=== PATIENT | male | born 2000 | race Caucasian/White ===

== ENCOUNTER 2019-12-17 12:30 | Emergency (ER) | payer OTHER, SELFPAY ==
[2019-12-17 12:32] VITALS: BP 108/65; PULSE 82; RESP 15; TEMP 36.4; O2SAT 97; BMI 21.9
--- NOTE | 2019-12-17 13:02 | ED.DCSUM_ITS ---
History of Present Illness Chief Complaint: Fever Informant: Patient Known exposure: No Onset: Today Context: Gradual Onset Associated Symptoms: Chills, Cough, Fever, White sputum. Negative for: Ear pain, Sore throat Chest Pain: None Narrative: Patient is a 19-year-old male that denies any past medical history except for mild intermittent asthma presenting at the request of [facility]. Patient states since yesterday he has had fever, myalgias, headache, cough and nasal congestion. He denies associated sore throat or difficulty breathing. He denies any significant wheezing. He was put in quarantine for the campus policy and was supposed to be tested for coronavirus there however today he spiked a fever of 101.5. He took a gram of Tylenol about 2 hours prior to arrival which has alleviated his fever and some of his myalgias. They wanted him to be evaluated further at the emergency room which is why he is here. Patient denies any nausea, vomiting or change in bowel habits. He notes his roommate has also had a fever but denies any other sick contacts. He states his symptoms started at 6 PM yesterday. He has no other complaints at this time. Past Medical History - Allergies and Home Meds Allergies/Adverse Reactions: Allergies No Known Allergies Allergy (Verified 12/17/19 12:34) Past Medical History: - - Mild asthma Surgical History: noncontributory Lives: Roommate Review of Systems General: Reports: Chills, Fever, Malaise. Denies: Sweats Cardiovascular: Denies: Chest pain, Palpitations Respiratory: Reports: Cough. Denies: Dyspnea, Dyspnea on exertion Gastrointestinal: Denies: Abdominal pain, Nausea, Vomiting, Diarrhea, Melena, Hematochezia Genitourinary: Denies: Dysuria, Hematuria, Frequency Musculoskeletal: Reports: Myalgias Skin: Denies: Rash Neurological: Reports: Headache. Denies: Weakness, Numbness Physical Exam Vital Signs/Narrative: Vital Signs Temp Pulse Resp BP Pulse Ox 12/17/19 12:32 97.5 F L 82 15 108/65 97 Inital Vital Signs reviewed: Yes General: Well nourished, Well developed Head: Normocephalic, Atraumatic Eyes: Perrl, EOMI ENT: Moist mucous membranes, - - Bilateral cerumen impactions Neck: Supple, Nontender Cardiovascular: Regular rate, Regular rhythm, No murmurs Respiratory: No distress, CTA bilaterally. Negative for: Wheezing, Diminished Abdomen: Soft, Nontender, Nondistended, Normal bowel sounds Back: Nontender, Normal Inspection Extremities: Nontender, No edema Skin: Normal color, No rash Neurological: Alert, Oriented x3, Cranial nerves II-XII grossly intact, Normal Strength, Normal Sensation Psychological: Normal affect Diagnostic/Tx/Re-eval - Medical Decision Making Evaluated for less than 24 hours of febrile illness. He appears nontoxic in no acute distress. He took Tylenol prior to arrival is currently afebrile. I suspect he has some type of viral illness. Given the current pandemic, he will be tested for COVID. He has clear breath sounds and I do not think a chest x- ray is indicated at this time. Patient denies any other complaints at this time. He will be treated symptomatically at home with Motrin and Tylenol alternating. He is offered Motrin in the ER but declines. At this time I do not suspect bacterial meningitis. He does not have any nuchal rigidity or associated rash. He has a normal neurologic exam. I think his headache and myalgias is more associated with his viral illness. ED Disposition - Plan for ED Patient: Disposition: Home or Assisted Living Diagnosis: Viral respiratory illness, Suspected COVID-19 virus infection Instructions: ED Viral Syndrome Additional Instructions: Please follow-up with [facility]. Alternate 600 mg of ibuprofen with 500 mg of Tylenol every 4 hours for fever and myalgias/body aches. You can use [id number] Debrox for your ear wax. Return the emergency room he developed difficulty breathing or feel that you are getting dehydrated. Try to drink lots of fluids over the next few days.
== END 2019-12-17 13:33 | disposition home or self-care (01) ==
LOC: ED 13:28
PROVIDERS: Emergency Provider Emergency Medicine
DX: B34.9 Viral infection, unspecified (principal); Z20.828 Contact with and (suspected) exposure to other viral communicable diseases; J45.20 Mild intermittent asthma, uncomplicated
CPT/HCPCS: 87635; 99282; U0003

== ENCOUNTER 2019-12-20 09:09 | Emergency (ER) | payer OTHER, SELFPAY ==
[2019-12-20 09:10] VITALS: BP 126/67; PULSE 71; RESP 18; TEMP 36.2; O2SAT 100; BMI 23.1
--- NOTE | 2019-12-20 09:32 | EKG12_ITS ---
Test Reason : SOB Blood Pressure : / mmHG Vent. Rate : 051 BPM Atrial Rate : 051 BPM P-R Int : 148 ms QRS Dur : 088 ms QT Int : 420 ms P-R-T Axes : -27 087 053 degrees QTc Int : 387 ms Sinus bradycardia Otherwise normal ECG Confirmed by KRYSTEN DEXTER, FRANCIS ([id number]), international editorial producer GISELA LACEY ([id number]) on 12/23/2019 2:47:31 PM Referred By: SALIMA Confirmed By:RAJWINDER BASHIR MD
--- NOTE | 2019-12-20 09:44 | ED.RN ---
NO OLD EKGS
--- NOTE | 2019-12-20 09:45 | ED.VIS.CHEST ---
History of Present Illness Informant: Patient Onset: Yesterday Activity at onset: Exertion, Light Activity, Rest Timing: Continuous Quality: Sharp, Stabbing Location: Left Chest Current Severity: Moderate Maximum Severity: Severe Worsened By: Nothing Relieved By: Nothing Associated Symptoms: Dyspnea, Cough. Negative for: Nausea, Vomiting, Diaphoresis, Fever, Lightheadedness, Acid Reflux, Palpitations Narrative: 19-year-old male presents with chest pain or shortness of breath. He was diagnosed with COVID 2 days ago. He was tested 4 days ago. Since yesterday he has had sharp stabbing left-sided chest pain. Nothing makes it better or worse. It does not radiate. He complains of shortness of breath and dry nonproductive cough. No hemoptysis. No fevers. No vomiting or diarrhea. He is not lightheaded or dizzy. No weakness or numbness. No difficulty with speech or ambulation. He states he has been having intermittent episodes of [id number] sensation throughout his left arm and leg. Again no weakness. No trauma. No neck pain. No headache. No visual changes. Prior Similar Symptoms: No Recent Illness/Hospitalization: Yes - Diagnosed with COVID earlier this week CVD Risk Factors: Negative for: Hypertension, Diabetes, Hypercholesterolemia, Family History 1' </=55, Smoking PE Risk Factors: Negative for: Recent Travel/Surgery, Recenet Immobilization, Prior DVT or PE, Cancer, OCP + Smoking + >/=35 TAD Risk Factors: Negative for: Marfan's Syndrome, Hypertension, Family History <Carlos Alberto Israel - Last Filed: 12/20/19 12:30> <Johny Hendrickson - Last Filed: 12/20/19 15:36> Chief Complaint: Shortness of Breath Past Medical History Prior records reviewed: Yes Past Medical History: None Surgical History: noncontributory Lives: With Family Smoking Status: Never smoker Alcohol: Occasional Drugs: None <Carlos Alberto Israel - Last Filed: 12/20/19 12:30> <Johny Hendrickson - Last Filed: 12/20/19 15:36> - Allergies and Home Meds Allergies/Adverse Reactions: Allergies No Known Allergies Allergy (Verified 12/20/19 09:13) Primary Care Physician: Tremayne Menon MD [STAFF PHYSICIAN] - 3-5 Days if not improving Review of Systems All systems negative except as indicated General: Reports: Malaise. Denies: Chills, Fever, Subjective, Sweats Eyes: Denies: Visual changes - bilaterally, Diplopia ENT: Denies: Rhinorrhea, Sore throat Cardiovascular: Reports: Chest pain. Denies: Palpitations, Heart racing Respiratory: Reports: Dyspnea, Cough. Denies: Sputum, Dyspnea on exertion, Orthopnea, Paroxysmal nocturnal dyspnea Gastrointestinal: Denies: Abdominal pain, Nausea, Vomiting, Diarrhea, Constipation, Melena, Hematochezia Genitourinary: Denies: Dysuria, Hematuria, Frequency Musculoskeletal: Reports: Myalgias. Denies: Arthralgias, Neck pain, Back pain, Swelling, Extremity Pain Skin: Denies: Rash, Wounds Neurological: Reports: Parasthesia. Denies: Headache, Weakness, Numbness Allergy: Denies: Uticaria, Swelling of the mouth, Swelling of the tongue <Carlos Alberto Israel - Last Filed: 12/20/19 12:30> Physical Exam Vital Signs/Narrative: Vital Signs Temp Pulse Resp BP Pulse Ox 12/20/19 09:10 97.1 F L 71 18 126/67 H 100 Inital Vital Signs reviewed: Yes General: Well nourished, Well developed, No Acute Distress Head: Normocephalic, Atraumatic Eyes: Perrl, EOMI ENT: Moist mucous membranes, No rhinorrhea Neck: Supple, Nontender Cardiovascular: Regular rate, Regular rhythm, No murmurs Respiratory: No distress, CTA bilaterally, Chest nontender Abdomen: Soft, Nontender, Nondistended, Normal bowel sounds Back: Nontender, Normal Inspection Extremities: Nontender, No edema Skin: Normal color, No rash Neurological: Alert, Oriented x3, Cranial nerves II-XII grossly intact, Normal Strength, Normal Sensation, Normal DTR, Normal Gait, - - NIH stroke scale is 0. Normal [id number] and [id number]. Psychological: Normal affect, Normal Mood <Carlos Alberto Israel - Last Filed: 12/20/19 12:30> Vital Signs/Narrative: Vital Signs Pulse Resp BP Pulse Ox 12/20/19 12:25 62 14 109/75 100 <Johny Hendrickson - Last Filed: 12/20/19 15:36> Diagnostic/Tx/Re-eval Chest X-Ray - ED: 1 View, Read by ED Physician, Read by Radiologist, No Acute Disease - Rhythm Strip Rhythm Strip: Sinus Rhythm Rate: 55 Ectopy: None - EKG Initial EKG Interpretation: Sinus Rhythm, No Acute Injury Pattern Prior: No Prior Repeat Eval: Pain Free SUKHJINDER Risk: No Positive SUKHJINDER Elements Score: 0 - Medical Decision Making Patient presents with normal vital signs he is well-appearing his EKG was sinus rhythm no signs of ischemia. His chest x-ray was unremarkable. His laboratory work-up was unremarkable. He was reassured. He will continue supportive care which we discussed. He will continue to isolate until he is cleared to return from his primary care. He was given return precautions. He will be discharged home. <Carlos Alberto Israel - Last Filed: 12/20/19 12:30> - Medical Decision Making Patient was seen with me. I did a [id number] examination with the patient. Patient presents with shortness of breath and left-sided paresthesias that became worse today. Patient was diagnosed with COVID earlier this week. Patient states he went to the [facility] urgent clinic and was referred to the emergency department. Vital signs are stable. Patient is afebrile. Patient is in no acute distress. Oral mucosa is pink and moist. Neck is supple. Trachea is midline. There is no JVD. Heart was regular rate and rhythm. Lungs are clear and equal bilaterally. Abdomen is soft. Bowel sounds are normal. There is no tenderness. Cranial nerves II through XII are intact. Strength is 5/5 bilateral in the upper and lower extremities. There are no sensory deficits noted. Chest x-ray was obtained. There is no acute cardiopulmonary process noted. EKG showed normal sinus rhythm. There is no evidence of ischemia. Basic labs were obtained and were within normal limits. Patient was instructed to continue to quarantine. Patient was instructed to follow-up with his primary care physician in 5 to 7 days. Patient understood and was agreeable with the plan. All questions were answered. <Johny Hendrickson - Last Filed: 12/20/19 15:36> ED Disposition <Carlos Alberto Israel - Last Filed: 12/20/19 12:30> <Johny Hendrickson - Last Filed: 12/20/19 15:36> - Plan for ED Patient: Disposition: Home or Assisted Living Diagnosis: COVID-19, Dyspnea, Chest pain Instructions: ED Viral Syndrome Referrals: Tremayne Menon MD [STAFF PHYSICIAN] - 3-5 Days if not improving
[2019-12-20] MEDS: 0.9% Normal Saline 1,000 ML 1000 ML IV (09:53)
[2019-12-20 10:26] LABS: Anion Gap 4 (5-15); BUN 10 mg/dL (7-18); BUN/Creat Ratio 9.3 RATIO (10-20); Chloride 104 mmol/L (98-107); Creatinine, Serum 1.08 mg/dL (0.70-1.30); EST Glomerular Filtration Rate 92 mL/min (>60); Est Glom Filt Rate - Afr Amer 111 mL/min (>60); Estimated Creatinine Clearance 101.16 ml/min; Glucose 84 mg/dL (74-106); Sodium Level 139 mmol/L (136-145)
--- NOTE | 2019-12-20 10:27 | RAD_ITS ---
STUDY: X-RAY CHEST REASON FOR EXAM: Male, 19 years old. SOB SINCE MONDAY TECHNIQUE: Single AP portable view of the chest. COMPARISON: None. FINDINGS: EKG electrodes are seen. The lungs are clear and expanded. There is no demonstrated pleural abnormality. Normal size heart. Normal mediastinum and melani. Normal visualized pulmonary arteries. Normal visualized aortic arch and descending thoracic aorta. Normal visualized thoracic spine. Normal visualized ribs, clavicles, and shoulders. There is no demonstrated abnormality of the visualized soft tissue structures of the upper abdomen. RAD/Chest 1 View (Portable) IMPRESSION: Normal x-ray examination of the chest. Electronically Signed: Rogelio Spicer, at 11:18 EDT , Service support ,
[2019-12-20 10:35] LABS: Absolute Lymphocyte Count 1.36 X10^3/uL (0.83-4.51); Absolute Neutrophil Count 1.8 X10^3/uL (2.0-7.7); Basophil# 0.01 X10^3/uL; Basophil% 0.3 % (0-1); Eosinophil# 0.08 X10^3/uL; Eosinophils% 2.1 % (0-5); Hematocrit 45.4 % (40-54); Hemoglobin 15.1 g/dL (13.0-16.5); Lymphocyte # 1.36 X10^3/ul (4.0); Lymphocyte % 35.1 % (19-41); Mean Corp Hgb Conc 33.3 g/dL (32-36); Mean Corpuscular Hgb 28.6 pg (27.0-32.0); Mean Platelet Vol. 9.4 fl (6.2-12.0); Monocyte# 0.59 X10^3/uL; Monocyte% 15.2 % (0-10); NRBC Flagged by Analyzer 0 % (0-5); Neutrophil # 1.83 X10^3/uL (2.7-7.7); Platelet Count 186 K/mm3 (150-450); RBC Distribution Width CV 12.1 % (11.6-14.6); RBC Distribution Width SD 37.9 fl (35.1-43.9); Red Blood Count 5.28 M/mm3 (4.6-6.2); White Blood Count 3.9 K/mm3 (4.4-11.0)
[2019-12-20 10:37] VITALS: O2SAT 98
[2019-12-20 10:48] VITALS: BP 112/68; PULSE 61; RESP 15; TEMP 36.2; O2SAT 98
[2019-12-20 12:25] VITALS: BP 109/75; PULSE 62; RESP 14; O2SAT 100
== END 2019-12-20 12:40 | disposition home or self-care (01) ==
PROVIDERS: Emergency Provider Physician Assistant Medical
DX: U07.1 COVID-19 (principal); R06.00 Dyspnea, unspecified; R07.9 Chest pain, unspecified
CPT/HCPCS: 71045; 80048; 84484; 85025; 93005; 96360; 96361; 99284; J7030